=== PATIENT | male | born 1960 | race Caucasian/White ===

== ENCOUNTER → 2016-10-25 | Outpatient (CLI) | payer OTHER ==
[2016-10-25 12:13] LABS: BASO % 0.4 %; BASO ABS # 0.02 K/uL (0-0.2); COMPLETE YES; EOS % 4.4 %; HEMATOCRIT 46.7 % (42-52); IG% 0.2 %; LYMPH % 38.1 %; LYMPH ABS # 1.81 K/uL (1.2-3.4); MEAN CELL VOLUME 84.3 fL (80-100); MEAN CORPUSCULAR HEMOGLOBIN 30.5 pg (25-34); MEAN CORPUSCULAR HGB CONC 36.2 g/dl (32-36); MONO % 10.3 %; NEUT % 46.6 %; PLATELET COUNT 211 K/uL (130-400); RED BLOOD COUNT 5.54 M/uL (4.7-6.1); WHITE BLOOD COUNT 4.75 K/uL (4.8-10.8)
[2016-10-25 12:32] LABS: ALT/SGPT 57 U/L (12-78); AST/SGOT 23 U/L (15-37); BLOOD UREA NITROGEN 15 mg/dl (7-18); BUN/CREATININE RATIO 15.2 (10-20); CALCIUM 9.2 mg/dl (8.5-10.1); CARBON DIOXIDE 31 mmol/L (21-32); CHLORIDE 106 mmol/L (98-107); CHOLESTEROL 192 mg/dl (0-200); GLUCOSE 94 mg/dl (70-99); POTASSIUM 3.5 mmol/L (3.5-5.1); SODIUM 143 mmol/L (136-145)
[2016-10-25 12:37] LABS: ALB/GLOB RATIO 1.1 (0.9-2); ALKALINE PHOSPHATASE 46 U/L (45-117); CHOLESTEROL/HDL RATIO 3.8; HDL CHOLESTEROL 51 mg/dl; LDL CHOLESTEROL CALCULATED 116 mg/dl; TRIGLYCERIDES 123 mg/dl (0-150); VERY LOW DENSITY LIPOPROT CALC 25 mg/dl
[2016-10-29 16:28] LABS: HEPATITIS C RNA TMA QUAL Detected
== END | disposition home or self-care (01) ==
LOC: C.LABPBG 08:50
PROVIDERS: ATTEND Internal Medicine
DX: R00.2 Palpitations (principal); Z11.59 Encounter for screening for other viral diseases

== ENCOUNTER → 2016-11-08 | Outpatient (CLI) | payer OTHER ==
[2016-11-13 12:42] LABS: HEPATITIS C VIRAL RNA(LOG) PCR 6.59 LOG IU/ML (<1.18)
== END | disposition home or self-care (01) ==
LOC: C.LABPBG 15:30
PROVIDERS: ATTEND Internal Medicine
DX: Z11.59 Encounter for screening for other viral diseases (principal)

== ENCOUNTER → 2016-11-26 | Outpatient (CLI) | payer OTHER ==
[2016-11-26 17:31] LABS: BASO % 0.3 %; BASO ABS # 0.02 K/uL (0-0.2); COMPLETE YES; EOS % 3.3 %; HEMATOCRIT 46.7 % (42-52); IG% 0.2 %; LYMPH % 37.7 %; LYMPH ABS # 2.41 K/uL (1.2-3.4); MEAN CELL VOLUME 86.2 fL (80-100); MEAN CORPUSCULAR HEMOGLOBIN 30.6 pg (25-34); MEAN CORPUSCULAR HGB CONC 35.5 g/dl (32-36); MEAN PLATELET VOLUME 10.3 fL (7.4-10.4); MONO % 9.5 %; PLATELET COUNT 247 K/uL (130-400); RED BLOOD COUNT 5.42 M/uL (4.7-6.1); WHITE BLOOD COUNT 6.39 K/uL (4.8-10.8)
[2016-11-26 17:44] LABS: PROTHROMBIN TIME (PATIENT) 10.5 SECONDS (9.0-12.0)
[2016-11-26 18:02] LABS: ALT/SGPT 54 U/L (12-78); AST/SGOT 20 U/L (15-37); BLOOD UREA NITROGEN 16 mg/dl (7-18); CALCIUM 8.8 mg/dl (8.5-10.1); CARBON DIOXIDE 29 mmol/L (21-32); CHLORIDE 106 mmol/L (98-107); ESTIMATED AVERAGE GLUCOSE 105 mg/dl; GLUCOSE 85 mg/dl (70-99); HA1C FLAG Normal (Normal); POTASSIUM 3.2 mmol/L (3.5-5.1); SODIUM 142 mmol/L (136-145); URIC ACID 6.5 mg/dl (2.6-7.2)
[2016-11-26 18:11] LABS: HEPATITIS B AB NEG
[2016-11-26 18:19] LABS: ALB/GLOB RATIO 1.1 (0.9-2); ALKALINE PHOSPHATASE 48 U/L (45-117)
[2016-11-30 07:07] LABS: ANTI-CENTROMERE AB <1.0 NEG AI (<1.0 NEG); ANTI-SS-A <1.0 NEG AI (<1.0 NEG); ANTI-SS-B <1.0 NEG AI (<1.0 NEG); DNA ds CRITHIDIA NEGATIVE (NEGATIVE); LIVER FIBR APOLIPOPROTEIN A-1 159 mg/dL (94-176); LIVER FIBROS ALPHA-2-MACROGLOB 204 mg/dL (106-279); LIVER FIBROSIS GGT 27 U/L (3-85); MICROSOMAL AB <1 IU/ML (<9); NECROINFLAMMATION ACT GRADE A0-A1; NECROINFLAMMATION ACT SCORE 0.18; Sm Antibody <1.0 NEG AI (<1.0 NEG); URCREATININE 107.5 MG/DL (>/= 20)
== END | disposition home or self-care (01) ==
LOC: C.LAB1850 16:02
PROVIDERS: ATTEND Internal Medicine Infectious Disease
DX: B19.20 Unspecified viral hepatitis C without hepatic coma (principal)

== ENCOUNTER → 2017-01-23 | Outpatient (CLI) | payer OTHER ==
[2017-01-26 12:10] LABS: HEPATITIS C VIRAL RNA BY PCR <15 DETECTED IU/ML (<15); HEPATITIS C VIRAL RNA(LOG) PCR <1.18 DETECTED LOG IU/ML (<1.18)
--- NOTE | 2017-02-01 08:41 | CODING QUERY NO DIAGNOSIS ---
: 1960 TREATMENT RENDERED WITHOUT A DIAGNOSIS To promote full compliance with coding requirements relating to patient care, physician participation is requested in all cases of [id number] armor crewman uncertainty. Please assist us with providing a diagnosis/symptom for the test(s) below: A diagnosis/symptom was not documented on your Order. A valid diagnosis/symptom is required to bill all insurances. Please remember that we are unable to code a diagnosis of rule out, probable, possible, questionable, or suspected. Tests that require a diagnosis: DOS: 01/23/17 * HEPATITIS C RNA QUANT DIAGNOSIS: Provider Signature: Date: Thank you Beatriz Bowden Health Information Management Once completed, please kindly fax back to [phone] For questions please call [phone]
== END | disposition home or self-care (01) ==
LOC: C.LABPBG 15:35
PROVIDERS: ATTEND Internal Medicine
DX: Z11.59 Encounter for screening for other viral diseases (principal); B19.20 Unspecified viral hepatitis C without hepatic coma

== ENCOUNTER → 2017-02-22 | Outpatient (CLI) | payer OTHER ==
[2017-02-22 13:22] LABS: BASO % 0.3 %; BASO ABS # 0.02 K/uL (0-0.2); COMPLETE YES; HEMATOCRIT 44.2 % (42-52); IG% 0.2 %; LYMPH % 28.3 %; MEAN CELL VOLUME 86.8 fL (80-100); MEAN CORPUSCULAR HGB CONC 35.7 g/dl (32-36); MEAN PLATELET VOLUME 10.3 fL (7.4-10.4); MONO % 9.3 %; NEUT % 58.9 %; PLATELET COUNT 199 K/uL (130-400); RED BLOOD COUNT 5.09 M/uL (4.7-6.1); WHITE BLOOD COUNT 6.01 K/uL (4.8-10.8)
[2017-02-22 13:59] LABS: ALB/GLOB RATIO 1.1 (0.9-2); ALKALINE PHOSPHATASE 45 U/L (45-117); ALT/SGPT 31 U/L (12-78); AST/SGOT 16 U/L (15-37); BLOOD UREA NITROGEN 16 mg/dl (7-18); BUN/CREATININE RATIO 14.7 (10-20); CALCIUM 9.3 mg/dl (8.5-10.1); CARBON DIOXIDE 29 mmol/L (21-32); CHLORIDE 105 mmol/L (98-107); GLUCOSE 92 mg/dl (70-99); POTASSIUM 3.1 mmol/L (3.5-5.1); SODIUM 140 mmol/L (136-145)
[2017-02-25 10:49] LABS: HEPATITIS C VIRAL RNA BY PCR <15 NOT DETECTED IU/ML (<15); HEPATITIS C VIRAL RNA(LOG) PCR <1.18 NOT DETECTED LOG IU/ML (<1.18)
== END | disposition home or self-care (01) ==
LOC: C.LAB1850 11:40
PROVIDERS: ATTEND Internal Medicine Infectious Disease
DX: B19.20 Unspecified viral hepatitis C without hepatic coma (principal)

== ENCOUNTER → 2017-03-22 | Outpatient (CLI) | payer OTHER ==
[2017-03-22 15:03] LABS: BLOOD UREA NITROGEN 17 mg/dl (7-18); CALCIUM 8.7 mg/dl (8.5-10.1); CARBON DIOXIDE 27 mmol/L (21-32); CHLORIDE 106 mmol/L (98-107); GLUCOSE 100 mg/dl (70-99); MAGNESIUM 2.1 mg/dl (1.8-2.4); POTASSIUM 3.2 mmol/L (3.5-5.1); SODIUM 139 mmol/L (136-145)
[2017-03-27 02:35] LABS: HEPATITIS C VIRAL RNA BY PCR <15 NOT DETECTED IU/ML (<15); HEPATITIS C VIRAL RNA(LOG) PCR <1.18 NOT DETECTED LOG IU/ML (<1.18)
== END | disposition home or self-care (01) ==
LOC: C.LAB1850 12:29
PROVIDERS: ATTEND Internal Medicine
DX: E87.6 Hypokalemia (principal)

== ENCOUNTER → 2017-04-15 | Outpatient (CLI) | payer OTHER ==
[2017-04-15 18:03] LABS: BLOOD UREA NITROGEN 15 mg/dl (7-18); BUN/CREATININE RATIO 13.4 (10-20); CALCIUM 9.6 mg/dl (8.5-10.1); CARBON DIOXIDE 26 mmol/L (21-32); CHLORIDE 105 mmol/L (98-107); GLUCOSE 108 mg/dl (70-99); POTASSIUM 3.4 mmol/L (3.5-5.1); SODIUM 140 mmol/L (136-145)
== END | disposition home or self-care (01) ==
LOC: C.LABPBG 15:17
PROVIDERS: ATTEND Internal Medicine
DX: I10 Essential (primary) hypertension (principal)

== ENCOUNTER 2018-03-09 10:23 | Emergency (ER) | payer OTHER ==
[~2018-03-09] VITALS: Ht 182.9 cm; Wt 94.6 kg
[2018-03-09 10:28] VITALS: TEMP 36.3; Ht 182.9 cm; Wt 94.6 kg
[2018-03-09] MEDS ORDERED: LISI40TA PO (10:58)
[2018-03-09] MEDS ORDERED: TRIA37.5 PO (10:58)
[2018-03-09] MEDS ORDERED: METO25TA4 PO (10:58)
[2018-03-09] MEDS ORDERED: ESOM1TAB PO (10:58)
[2018-03-09] MEDS ORDERED: LIDODERM (LIDOCAINE) PATCH 5% TD STA (11:15)
[2018-03-09] MEDS ORDERED: KETOROLAC TROMETHAMINE 60 MG/2 ML VIAL IM STA (11:15)
[2018-03-09] MEDS ORDERED: METH4PAK PO (11:22)
[2018-03-09] MEDS ORDERED: NRN/300 PO (11:22)
--- NOTE | 2018-03-09 11:24 | EMERGENCY ROOM VISIT NOTE ---
ED Visit Note First contact with patient: 11:00 CHIEF COMPLAINT: Low back pain HISTORY OF PRESENT ILLNESS: This 57-year-old male patient presents to the emergency department, ambulatory, complaining of pain in the low back which began approximately 2 months ago. The patient denies any known injury, but states he began experiencing pain at work. He operates heavy machinery. The pain was gradual in onset, is now constant and worse with movement. He states over the past 2 days, the pain has flared up and become worse. He did have imaging performed approximately 1 month ago and was diagnosed with degenerative disc disease. He did see a spine surgeon, Dr. Shelton, as well as his PCP, Dr. Mesa, who recommended he follow-up with a chiropractor. The patient notes the pain as sharp and a 9/10. The patient has taken 2 Aleve without relief of the pain. The patient does report some paresthesias in the bilateral lower extremities. The patient denies any loss of control of their bowel or bladder functions. There has been no leg numbness or weakness. No nausea or vomiting or abdominal pain. No chest pain or shortness of breath. The patient has not had prior back injuries. No dysuria or increased urinary frequency. REVIEW OF SYSTEMS: A 10 system review of systems was performed with positives and pertinent negatives listed in the history of present illness. All other systems were reviewed and are negative. ALLERGIES: None MEDICATIONS: Nexium, lisinopril, metoprolol, Dyazide PMH: Hypertension SOCIAL HISTORY: The patient lives locally with family. He denies drug, alcohol, tobacco use. PHYSICAL EXAM: VITALS: Vitals are noted on the nurse's note and reviewed by myself. Vital signs stable. GENERAL: This is a 57-year-old white male, in no acute distress, nondiaphoretic , well-developed well-nourished. SKIN: The skin was without rashes, erythema, edema, or bruising. Capillary refill less than 2 seconds. NECK: Supple without nuchal rigidity. No cervical spine tenderness. No paraspinous muscle tenderness. HEART: Regular rate and rhythm without murmurs gallops or rubs. LUNGS: Clear to auscultation bilaterally without wheezes, rales or rhonchi. ABDOMEN: Positive bowel sounds x 4. Normal tympanic percussion. Soft, nontender, without masses or organomegaly. Rao sign negative. MUSCULOSKELETAL: No muscle atrophy, erythema, or edema noted of the back. There is no tenderness over the lumbar spinous processes. There is tenderness over the paraspinous muscles bilaterally. There is no tenderness over the thoracic spine or paraspinous muscles. There are no muscle spasms present. The patient is slow to move around with maximum tenderness with sitting from a lying position. Positive straight leg raise test bilaterally. NEURO: Patient was alert and oriented to person place and time. Normal sensation to light and sharp touch. Deep tendon reflexes 2+ in the lower extremities. Dorsalis pedis pulse 2+ bilaterally. Strength 5/5 and equal in the bilateral lower extremities. EMERGENCY DEPARTMENT COURSE: The patient was seen and evaluated as above. Symptoms are more chronic in nature, and there was no new injury to cause the worsening pain. The patient is not exhibiting any symptoms of abscess, or cauda equina syndrome. The patient did have imaging performed and is currently being followed by a spine surgeon. I recommended that the patient continue to follow-up closely with the spine surgeon as well as his primary care provider regarding chronic pain management. The patient was given IM Toradol and a Lidoderm patch here in the emergency department. He will be treated with a short course of steroids and gabapentin to help with the nerve pain. The patient was agreeable and verbalized understanding of the treatment plan. All questions answered to the patient and his satisfaction prior to discharge. Discharge instructions reviewed, the patient was discharged home in good condition. I attest that I have personally reviewed the patient's current medication list. Blood Pressure Screening: Patient was found to have a slightly elevated blood pressure due to circumstances. I do not believe that the patient requires hypertension monitoring. Etiologies such as lumbago, sciatica, cauda equina, epidural abscess, osteomyelitis, fracture, aortic disease, metastatic disease, infection, renal colic, gastrointestinal, as well as others were entertained. DIAGNOSIS: Lumbar strain, degenerative disc disease The chart was completed utilizing [employer] voice recognition software. Grammatical errors, random word insertions, pronoun errors, and incomplete sentences are an occasional consequence of this system due to software limitations, ambient noise, and hardware issues. Any formal questions or concerns about the content, text, or information contained within the body of this dictation should be directly addressed to the provider for clarification. Problem List Medical Problems: (1) Benign hypertension Status: Chronic (2) Gastroesophageal reflux disease Status: Chronic (3) Palpitations Status: Resolved Current/Historical Medications Scheduled Esomeprazole Magnesium (Nexium 24Hr), 20 MG PO DAILY Gabapentin (Neurontin), 1 CAP PO TID Lisinopril (Zestril), 40 MG PO DAILY Methylprednisolone (Medrol Dosepak), 0 PO DAILY Metoprolol Succinate (Toprol Xl), 25 MG PO DAILY Triamterene/Hctz (Dyazide 37.5MG/25MG), 1 TAB PO DAILY Allergies Coded Allergies: No Known Allergies (Unverified , 03/09/18) Vital Signs Date Time Temp Pulse Resp B/P (MAP) Pulse Ox O2 Delivery O2 Flow Rate FiO2 03/09/18 12:50 64 20 167/99 64 03/09/18 11:32 62 14 109/72 98 03/09/18 10:28 36.3 63 16 167/93 98 Room Air Medications Administered Medications (Trade) Dose Ordered Sig/Barbara Route Start Time Stop Time Status Last Admin Dose Admin Ketorolac Tromethamine (Toradol Inj) 60 mg NOW STAT IM 03/09/18 11:15 03/09/18 11:17 DC 03/09/18 11:30 60 MG Lidocaine (Lidoderm Patch 5%) 1 patch NOW STAT TD 03/09/18 11:15 03/09/18 11:17 DC 03/09/18 11:57 1 PATCH Departure Information Impression Primary Impression: Degenerative disc disease, lumbar Additional Impression: Lumbar strain Dispostion Home / Self-Care Condition GOOD Prescriptions Gabapentin (NEURONTIN) 300 Mg Cap 1 CAP PO TID, #30 CAP Prov: Libra Castillo PA-C 03/09/18 Methylprednisolone (MEDROL DOSEPAK) 4 Mg Ihsan 0 PO DAILY, #1 PKT Prov: Libra Castillo PA-C 03/09/18 Referrals Kirill Mesa M.D. (PCP) Gael Jessica M.D. Patient Instructions ED DDD Degenerative Disk Disease, My [facility] Additional Instructions You have been treated in the Emergency Department for Back Pain. You were given a Lidoderm patch here in the ED. This must be removed in 12 hours. You were prescribed gabapentin to help with the nerve pain. Use this medication as prescribed. Note, this medication may make you very sleepy. He should begin taking it once daily at bedtime, and may increase to 3 times daily as tolerated. Do not drive or operate machinery until you know how this medication affects you. You have been prescribed a Medrol Dosepak. This is a steroid which will help decrease your inflammation, redness, and itch. Take the medicine as prescribed. Take the ENTIRE 6 day course of the steroids. No NSAIDs including ibuprofen, Aleve, naproxen, Motrin, Advil while on this medication. You may take Tylenol in addition to the steroids. For pain control, you can use the following [id number]-xhdsoea medicines (if >12 yo): Ibuprofen(Motrin, Advil) may be used for fever or pain. Use 600mg every six hours as needed. Take with food. Avoid using more than 2400mg in a 24 hour period. Do not use 2400mg per day for more than three consecutive days without physician direction. Prolonged inappropriate use can lead to stomach upset or ulcers. No NSAIDs while on steroids. (AND/OR) Acetaminophen(Tylenol) may be used for fever or pain. Use 1000mg every six hours as needed. Avoid using more than 3000mg in a 24 hour period. If this is an acute injury, ice can be applied to the area of pain for the first 3 days to help decrease pain and inflammation. After the first 3 days, a heating pad can be used over the area for continued soothing relief. You should schedule a follow-up appointment in 1-2 days with your Primary Care Provider for further evaluation and treatment of your back pain. Return to the Emergency Department if your current symptoms worsen despite treatment course outlined above, or if you develop any of the following symptoms : intractable pain despite aforementioned treatment course, loss of control of your bowel or bladder, numbness or tingling in your groin, or development of a fever. Problem Qualifiers Additional Impression: Lumbar strain Encounter type: initial encounter Qualified Codes: S39.012A - Strain of muscle, fascia and tendon of lower back, initial encounter
[2018-03-09 12:50] VITALS: BP 167/99; PULSE 64; O2SAT 64
== END 2018-03-09 12:51 | disposition home or self-care (01) ==
LOC: C.EDB 10:25 → C.EDA 12:51
DX: M51.36 Other intervertebral disc degeneration, lumbar region (principal); S39.012A Strain of muscle, fascia and tendon of lower back, initial encounter; X58.XXXA Exposure to other specified factors, initial encounter; M54.5 Low back pain; I10 Essential (primary) hypertension; K21.9 Gastro-esophageal reflux disease without esophagitis